=== PATIENT | female | born 1940 | race Caucasian/White ===

== ENCOUNTER 2016-03-25 15:23 | Emergency (ER) | payer MEDICARE, BC ==
[~2016-03-25] VITALS: Ht 165.1 cm; Wt 56.0 kg
[~2016-03-25 15:23] MED LIST: ALBU1AER INH; COUM5TAB PO; COUM7.5T PO; LORA1TAB PO; LOSA100T3 PO; METO25 PO; SYNT100T PO; UMEC1AER
[2016-03-25 15:25] VITALS: BP 102/57; PULSE 124; RESP 20; TEMP 98.3; O2SAT 96
[2016-03-25] MEDS ORDERED: ONDANSETRON HCL 4 MG/2 ML VIAL IV PUSH ONE (16:30)
[2016-03-25] MEDS ORDERED: SODIUM CHLOR 0.9% 1000 ML INJ 1,000 ML IV ONE (16:30)
--- NOTE | 2016-03-25 16:32 | PD ---
HPI Chief Complaint: Abdominal Pain Time Seen by Provider: 16:18 Travel History International Travel<30 days: No Contact w/Intl Traveler<30days: No Traveled to known affect area: No History of Present Illness HPI The patient is a 76-year-old female who presents emergency department for abdominal pain. The patient states she developed abdominal pain on Tuesday is located left lower quadrant suprapubic region, nonradiating, and associated decreased bowel movements. The patient does have a history of chronic constipation, denies any known history of diverticulitis. The patient denies any dysuria, frequency, or urgency. The patient has a history of previous abdominal surgeries including hysterectomy, appendectomy, and cholecystectomy. The patient denies any associated fever, chills, or sweats. She does note decreased oral intake secondary to the abdominal pain. The patient also states she struck the top of her head, on the right side of her head, earlier today on a drawer. The patient is on Coumadin and has a history of previous brain surgery secondary to meningioma removal. The patient denies any visual disturbances or focal deficits, does complain of a mild headache. The patient' s primary physician is Dr. Mayberry. [facility] Past Medical History Hx Anticoagulant Therapy: Yes (warfarin) Asthma: Yes Cancer: Yes (BREAST AND BLADDER) Cardiovascular Problems: Yes (htn,AR) Chemotherapy: Yes (masectomy) Cerebrovascular Accident: Yes Diabetes: No Diminished Hearing: Yes Endocrine: No Gastrointestinal Disorders: No Genitourinary: No Hepatitis: No Hiatal Hernia: No Hypertension: Yes Immune Disorder: No Musculoskeletal: Yes (ARTHRITIS) Neurologic: Yes (dystonia) Psychiatric: No Reproductive: No Respiratory: Yes (asthma, copd) Thyroid Disease: Yes ([place] THYROID) Past Surgical History Abdominal Surgery: Yes AICD: No Appendectomy: Yes Cholecystectomy: Yes Ear Surgery: No Endocrine Surgery: Yes (THROIDECTOMY) Eye Surgery: No Genitourinary Surgery: Yes (BLADDER) Gynecologic Surgery: Yes (HYSTERECTOMY) Hysterectomy: Yes Joint Replacement: Yes Mastectomy: Yes (LEFT) Neurologic Surgery: Yes (BRAIN TUMOR REMOVED) Oral Surgery: No Pacemaker: No Tonsillectomy: Yes Other Surgery: Yes (THYROID REMOVED) Social History Alcohol Use: Yes (SOCIAL) Tobacco Use: No Substance Use: No Allergies-Medications (Allergen,Severity, Reaction): Coded Allergies: Shellfish (Verified Allergy, Severe, Shortness of Breath, 03/25/16) Spiriva (Verified Allergy, Severe, rash, 03/25/16) Codeine (Verified Allergy, Unknown, NAUSEA AND VOMITIMG, 03/25/16) Reported Meds & Prescriptions Reported Meds & Active Scripts Active Reported Synthroid (Levothyroxine Sodium) 125 Mcg Tab 125 Mcg PO DAILY Losartan-Hydrochlorothiazide 50-12.5 Mg Tab 1 Tab PO DAILY Metoprolol Tartrate 25 Mg Tab 12.5 Mg PO BID Lorazepam 1 Mg Tab 1 Mg PO TID PRN Anoro Ellipta Inh (Umeclidinium/Vilanterol) 62.5-25 Mcg/Act Aero 1 Puff INH DAILY Warfarin 5 Mg Tab 5 Mg PO DAILY Review of Systems Except as stated in HPI: all other systems reviewed are Neg General / Constitutional: No: Fever Eyes: No: Blurred Vision HENT: Positive: Headaches, No: Lightheadedness Cardiovascular: No: Chest Pain or Discomfort Respiratory: No: Shortness of Breath Gastrointestinal: Positive: Abdominal Pain, Changes in Bowel Habits, Loss of Appetite, No: Nausea, Vomiting, Diarrhea Genitourinary: No: Urgency, Frequency, Dysuria Musculoskeletal: No: Weakness Neurologic: No: Dizziness Physical Exam Narrative GENERAL: Awake, alert, pleasant 76-year-old female who appears her stated age and is in no acute respiratory distress. SKIN: Warm and dry. HEAD: Well-healed scar of the right frontal parietal region. No obvious hematoma. EYES: Pupils equal and round. No scleral icterus. No injection or drainage. Pupils are 3 mm bilateral and reactive. ENT: No nasal bleeding or discharge. Slightly dry mucous membranes. NECK: Trachea midline. No JVD. CARDIOVASCULAR: Regular, tachycardic with a heart rate of 110. RESPIRATORY: No accessory muscle use. Clear to auscultation. Breath sounds equal bilaterally. GASTROINTESTINAL: Abdomen soft, tender palpation left lower quadrant and suprapubic region. No rebound tenderness, or rigidity. Mild guarding. MUSCULOSKELETAL: No obvious deformities. No clubbing. No cyanosis. No edema. NEUROLOGICAL: Awake and alert. No obvious cranial nerve deficits. Motor grossly within normal limits. Normal speech. PSYCHIATRIC: Appropriate mood and affect; insight and judgment normal. Data Data Last Documented VS Vital Signs Date Time Temp Pulse Resp B/P Pulse Ox O2 Delivery O2 Flow Rate FiO2 03/25/16 17:22 98 20 117/80 97 Room Air 03/25/16 15:25 98.3 Orders Complete Blood Count With Diff (03/25/16 15:35) Comprehensive Metabolic Panel (03/25/16 15:35) Urinalysis - C+S If Indicated (03/25/16 15:35) Lipase (03/25/16 15:35) Electrocardiogram (03/25/16 15:35) Lactic Acid (03/25/16 16:26) Ct Abd/Pel W/O Iv Contrast (03/25/16 ) Ct Brain W/O Iv Contrast(Rout) (03/25/16 ) Sodium Chlor 0.9% 1000 Ml Inj (Ns 1000 M (03/25/16 16:30) Ondansetron Inj (Zofran Inj) (03/25/16 16:30) Act Partial Throm Time (Ptt) (03/25/16 17:02) Prothrombin Time / Inr (Pt) (03/25/16 17:02) Ciprofloxacin 400 Mg Premix (Cipro 400 M (03/25/16 17:15) Metronidazole 500 Mg Inj (Flagyl 500 Mg (03/25/16 17:15) Ketorolac Inj (Toradol Inj) (03/25/16 17:30) Labs Laboratory Tests Test 03/25/16 03/25/16 16:09 17:17 White Blood Count 7.6 TH/MM3 Red Blood Count 3.80 MIL/MM3 Hemoglobin 12.8 GM/DL Hematocrit 37.3 % Mean Corpuscular Volume 98.0 FL Mean Corpuscular Hemoglobin 33.6 PG Mean Corpuscular Hemoglobin 34.3 % Concent Red Cell Distribution Width 14.0 % Platelet Count 241 TH/MM3 Mean Platelet Volume 7.3 FL Neutrophils (%) (Auto) 90.1 % Lymphocytes (%) (Auto) 4.2 % Monocytes (%) (Auto) 4.5 % Eosinophils (%) (Auto) 1.1 % Basophils (%) (Auto) 0.1 % Neutrophils # (Auto) 6.9 TH/MM3 Lymphocytes # (Auto) 0.3 TH/MM3 Monocytes # (Auto) 0.3 TH/MM3 Eosinophils # (Auto) 0.1 TH/MM3 Basophils # (Auto) 0.0 TH/MM3 CBC Comment DIFF FINAL Differential Comment Prothrombin Time 48.3 SEC Prothromb Time International 4.1 RATIO Ratio Activated Partial 61.8 SEC Thromboplast Time Urine Color YELLOW Urine Turbidity CLEAR Urine pH 6.5 Urine Specific [place] 1.013 Urine Protein TRACE mg/dL Urine Glucose (UA) NEG mg/dL Urine Ketones NEG mg/dL Urine Occult Blood NEG Urine Nitrite NEG Urine Bilirubin NEG Urine Urobilinogen 2.0 MG/DL Urine Leukocyte Esterase SMALL Urine RBC 1 /hpf Urine WBC 4 /hpf Urine Squamous Epithelial <1 /hpf Cells Urine Mucus FEW /lpf Microscopic Urinalysis Comment CULT NOT INDICATED Sodium Level 132 MEQ/L Potassium Level 3.2 MEQ/L Chloride Level 96 MEQ/L Carbon Dioxide Level 28.8 MEQ/L Anion Gap 7 MEQ/L Blood Urea Nitrogen 19 MG/DL Creatinine 0.66 MG/DL Estimat Glomerular Filtration 88 ML/MIN Rate Random Glucose 96 MG/DL Calcium Level 8.2 MG/DL Total Bilirubin 0.7 MG/DL Aspartate Amino Transf 10 U/L (AST/SGOT) Alanine Aminotransferase 14 U/L (ALT/SGPT) Alkaline Phosphatase 132 U/L Total Protein 6.6 GM/DL Albumin 2.8 GM/DL Lipase 74 U/L Lactic Acid Level 0.9 mmol/L [facility] Medical Decision Making Medical Screen Exam Complete: Yes Emergency Medical Condition: Yes Medical Record Reviewed: Yes Interpretation(s) Laboratory Tests Test 03/25/16 03/25/16 16:09 17:17 White Blood Count 7.6 TH/MM3 Red Blood Count 3.80 MIL/MM3 Hemoglobin 12.8 GM/DL Hematocrit 37.3 % Mean Corpuscular Volume 98.0 FL Mean Corpuscular Hemoglobin 33.6 PG Mean Corpuscular Hemoglobin 34.3 % Concent Red Cell Distribution Width 14.0 % Platelet Count 241 TH/MM3 Mean Platelet Volume 7.3 FL Neutrophils (%) (Auto) 90.1 % Lymphocytes (%) (Auto) 4.2 % Monocytes (%) (Auto) 4.5 % Eosinophils (%) (Auto) 1.1 % Basophils (%) (Auto) 0.1 % Neutrophils # (Auto) 6.9 TH/MM3 Lymphocytes # (Auto) 0.3 TH/MM3 Monocytes # (Auto) 0.3 TH/MM3 Eosinophils # (Auto) 0.1 TH/MM3 Basophils # (Auto) 0.0 TH/MM3 CBC Comment DIFF FINAL Differential Comment Prothrombin Time 48.3 SEC Prothromb Time International 4.1 RATIO Ratio Activated Partial 61.8 SEC Thromboplast Time Urine Color YELLOW Urine Turbidity CLEAR Urine pH 6.5 Urine Specific [place] 1.013 Urine Protein TRACE mg/dL Urine Glucose (UA) NEG mg/dL Urine Ketones NEG mg/dL Urine Occult Blood NEG Urine Nitrite NEG Urine Bilirubin NEG Urine Urobilinogen 2.0 MG/DL Urine Leukocyte Esterase SMALL Urine RBC 1 /hpf Urine WBC 4 /hpf Urine Squamous Epithelial <1 /hpf Cells Urine Mucus FEW /lpf Microscopic Urinalysis Comment CULT NOT INDICATED Sodium Level 132 MEQ/L Potassium Level 3.2 MEQ/L Chloride Level 96 MEQ/L Carbon Dioxide Level 28.8 MEQ/L Anion Gap 7 MEQ/L Blood Urea Nitrogen 19 MG/DL Creatinine 0.66 MG/DL Estimat Glomerular Filtration 88 ML/MIN Rate Random Glucose 96 MG/DL Calcium Level 8.2 MG/DL Total Bilirubin 0.7 MG/DL Aspartate Amino Transf 10 U/L (AST/SGOT) Alanine Aminotransferase 14 U/L (ALT/SGPT) Alkaline Phosphatase 132 U/L Total Protein 6.6 GM/DL Albumin 2.8 GM/DL Lipase 74 U/L Lactic Acid Level 0.9 mmol/L Differential Diagnosis Differential diagnosis includes diverticulitis, diverticulitis with abscess, UTI , pyelonephritis, nephrolithiasis, intracranial hemorrhage, closed head injury, coagulopathy, dehydration. Narrative Course IV was established, labs are drawn and sent, and the patient was placed on cardiac telemetry monitoring and continuous pulse oximetry monitoring. The patient declined pain medications, states she is allergic to "everything "related to codeine and declines morphine. However, she cannot recall ever having morphine. CT the abdomen and pelvis was ordered to evaluate for diverticulitis and CT the brain was ordered to rule out intracranial hemorrhage on anticoagulation therapy. Patient was administered Zofran and IV fluids. I discussed the CT of the abdomen and pelvis with Dr. Cavazos who states it is uncomplicated diverticulitis. CT the brain is negative for any acute findings. Therefore, the patient was administered Toradol, Cipro, and Flagyl. The patient is on Coumadin and INR is elevated at 4.1, therefore, I will discharge the patient home and Augmentin as opposed to Cipro and Flagyl as Cipro may potentiate Coumadin. Diagnosis Primary Impression: Diverticulitis Qualified Code: K57.32 - Diverticulitis of large intestine without perforation or abscess without bleeding Patient Instructions: General Instructions Additional Instructions: Please provide the patient a copy of her CT results and lab results at discharge. Medications as directed. Follow-up with a primary physician. Return if symptoms worsen or progress. Med/Other Pt SpecificInfo: Prescription(s) given Scripts Hydrocodone-Acetaminophen (Raymond)5-325 mg Tab1 Tab PO Q6H PRN (PAIN) #20 TAB Ref 0 Prov:Presley Brennan MD 03/25/16 Amoxicillin-Clavulanate (Augmentin)500-125 mg [id number] Mg PO Q8H 10 Days Ref 0 Prov:Presley Brennan MD 03/25/16 Disposition: 01 DISCHARGE HOME Condition: Stable Presley Brennan MD Mar 25, 2016 16:32
[2016-03-25 16:37] LABS: AUTOMATED NEUTROPHIL # 6.9 TH/MM3 (1.8-7.7); BASOPHIL % 0.1 % (0.0-2.0); EOSINOPHIL # 0.1 TH/MM3 (0-0.4); EOSINOPHIL % 1.1 % (0.0-4.0); HEMATOCRIT 37.3 % (35.0-46.0); HEMO FLAGS DIFF FINAL; LYMPH % 4.2 % (9.0-44.0); LYMPHOCYTE # 0.3 TH/MM3 (1.0-4.8); MEAN CORPUSCULAR HEMOGLOBIN 33.6 PG (27.0-34.0); MEAN CORPUSCULAR HGB CONC 34.3 % (32.0-36.0); MONO % 4.5 % (0.0-8.0); NEUT % 90.1 % (16.0-70.0); PLATELET COUNT 241 TH/MM3 (150-450); WHITE BLOOD COUNT 7.6 TH/MM3 (4.0-11.0)
[2016-03-25 16:41] LABS: BLOOD, URINE NEG (NEG); COMMENT (UR) CULT NOT INDICATED; CULTURE IF INDICATED CULT NOT INDICATED; GLUCOSE,URINE NEG (NEG); KETONE, URINE NEG (NEG); MUCUS URINE FEW /lpf (OCC); NITRITE,URINE NEG (NEG); PH, URINE 6.5 (5.0-8.5); SQUAMOUS EPITHELIAL CELL URINE <1 /hpf (0-5); URINE COLOR YELLOW (YELLW/STRAW)
[2016-03-25 16:59] LABS: ANION GAP 7 MEQ/L (5-15); AST (GOT) 10 U/L (15-37); BICARBONATE 28.8 MEQ/L (21.0-32.0); BLOOD UREA NITROGEN 19 MG/DL (7-18); CHLORIDE 96 MEQ/L (98-107); GLOMERULAR FILTRATION RATE 88 ML/MIN (>89); POTASSIUM 3.2 MEQ/L (3.5-5.1); SODIUM (NA) 132 MEQ/L (136-145)
[2016-03-25 17:02] LABS: ALKALINE PHOSPHATASE 132 U/L (45-117); ALT (GPT) 14 U/L (10-53); TOTAL BILIRUBIN ADULT 0.7 MG/DL (0.2-1.0)
--- NOTE | 2016-03-25 17:11 | RADRPT ---
EXAM DATE/TIME: 03/25/2016 16:51 [facility] COMPARISON: MRI BRAIN W & W/O CONTRAST, January 23, 2015, 15:18. CT BRAIN W/O CONTRAST, July 23, 2015, 0:18. INDICATIONS : Fall and hit head on dresser today; LLQ abdominal pain for three days. RADIATION DOSE: 42.45 CTDIvol (mGy) MEDICAL HISTORY : Cerebrovascular disease. Hypertension. Breast, bladder, and thyroid cancer. SURGICAL HISTORY : Appendectomy. Cholecystectomy. Mastectomy, left. ENCOUNTER: Initial ACUITY: 1 day PAIN SCALE: 5/10 LOCATION: Cranial TECHNIQUE: Multiple contiguous axial images were obtained of the head. Using automated exposure control and adj ustment of the mA and/or kV according to patient size, radiation dose was kept as low as reasonably a chievable to obtain optimal diagnostic quality images. FINDINGS: Encephalomalacia is again noted within the frontal lobes bilaterally. Old lacunar infarcts are noted within the left thalamus. Moderate periventricular and subcortical white matter small vessel ischem ic changes are noted bilaterally. Diffuse cerebral atrophy is noted. There is no acute hemorrhage, a cute infarct, mass effect or extra-axial fluid collections. CONCLUSION: 1. Bifrontal encephalomalacia is stable. 2. Old lacunar infarct within the left thalamus. 3. Moderate periventricular and subcortical white matter small vessel ischemic changes bilaterally. 4. Diffuse cerebral atrophy. 5. No acute infarct, acute hemorrhage, mass effect or extra-axial fluid collections. Gianfranco Botello MD on March 25, 2016 at 17:03 Board Certified Radiologist. This report was verified electronically.
[2016-03-25] MEDS ORDERED: metroNIDAZOLE 500 MG INJ 100 ML IV ONE (17:15)
[2016-03-25] MEDS ORDERED: CIPROFLOXACIN 400 MG PREMIX 200 ML IV ONE (17:15)
[2016-03-25 17:22] VITALS: BP 117/80; PULSE 98; RESP 20; O2SAT 97
--- NOTE | 2016-03-25 17:29 | RADRPT ---
EXAM DATE/TIME: 03/25/2016 16:54 [facility] COMPARISON: No previous studies available for comparison. INDICATIONS : Fall and hit head on dresser today; LLQ abdominal pain for three days. ORAL CONTRAST: No oral contrast ingested. RADIATION DOSE: 8.63 CTDIvol (mGy) MEDICAL HISTORY : Cerebrovascular disease. Hypertension. Breast, bladder, and thyroid cancer. SURGICAL HISTORY : Appendectomy. Cholecystectomy. Mastectomy, left. ENCOUNTER: Initial ACUITY: 3 days PAIN SCALE: 5/10 LOCATION: Left lower quadrant Abdomen/pelvis TECHNIQUE: Volumetric scanning of the abdomen and pelvis was performed. Using automated exposure control and adjustment of the mA and/or kV according to patient size, radiation dose was kept as low as reasonably achievable to obtain optimal diagnostic quality images. FINDINGS: Lung bases are clear. The liver is free of focal defects. Spleen, pancreas, adrenals and kidneys are unremarkable. There are moderate inflammatory changes in the left lower quadrant associated with diverticuli. This is suspicious for diverticulitis without abscess. Pelvic contents are otherwise unremarkable. Review of bone windows reveals only degenerative changes. Fracture is not appreciated. CONCLUSION: Findings are suspicious for uncomplicated diverticulitis in the left lower quadrant. Kemal Cavazos MD FACR on March 25, 2016 at 17:12 Board Certified Radiologist. This report was verified electronically.
[2016-03-25] MEDS ORDERED: KETOROLAC TROMETHAMINE 30 MG/ML (IVP) VIAL IV PUSH ONE (17:30)
[2016-03-25 17:32] LABS: APTT (PATIENT) 61.8 SEC (24.3-30.1); INTERNATIONAL NORMALIZED RATIO 4.1 RATIO; PROTHROMBIN TIME - PATIENT 48.3 SEC (9.8-11.6)
[2016-03-25] MEDS ORDERED: LORA1TAB12 PO (18:19)
[2016-03-25] MEDS ORDERED: WARF-23 PO (18:19)
[2016-03-25] MEDS ORDERED: LEVO.125 PO (18:19)
[2016-03-25] MEDS ORDERED: LOSA50TA2 PO (18:19)
[2016-03-25] MEDS ORDERED: UMEC1AER INH (18:19)
[2016-03-25] MEDS ORDERED: METO25TA3 PO (18:19)
[2016-03-25] MEDS ORDERED: AUGM500T7 PO (18:32)
[2016-03-25] MEDS ORDERED: NORC5TAB PO (18:32)
[2016-03-25 19:16] VITALS: BP 110/72; PULSE 98; RESP 18; O2SAT 95
--- NOTE | 2016-03-26 22:54 | EKG ---
Date Performed: 03/25/2016 Time Performed: 15:45:25 PTAGE: 76 years EKG: SUPRAVENTRICULAR TACHYCARDIA THAT IS PROBABLY ATRIAL FIBRILLATION BUT I CANNOT EXCLUDE SINU S TACHYCARDIA WITH PACs BECAUSE OF THE MARKED BASELINE ARTIFACT. THE PATIENT, HOWEVER, WAS PREVIOUSL Y IN ATRIAL FIBRILLATION SO IT MAKES IT MORE LIKELY THAT THE PRESENT RHYTHM IS ATRIAL FIBRILLATION WELL. INDETERMINATE AXIS LOW QRS VOLTAGE IN EXTREMITY LEADS Compared to previous tracing, the nonspe cific ST-T wave changes have improved. ABNORMAL RHYTHM ECG PREVIOUS TRACING : 01/22/2015 18.15 DOCTOR: Octavia De Interpretating Date/Time 03/26/2016 22:53:20
== END 2016-03-25 20:24 | disposition home or self-care (01) ==
LOC: NEPA 15:23
DX: K57.32 Diverticulitis of large intestine without perforation or abscess without bleeding (principal); J45.909 Unspecified asthma, uncomplicated; J44.9 Chronic obstructive pulmonary disease, unspecified; Z79.01 Long term (current) use of anticoagulants; Z90.710 Acquired absence of both cervix and uterus; I25.2 Old myocardial infarction; I10 Essential (primary) hypertension
CPT/HCPCS: 70450; 74176; 80053; 81001; 83605; 83690; 85025; 85610; 85730; 93005; 96365; 96375; 99284; J0744; J1885; J2405; J7030

== ENCOUNTER 2016-10-27 12:10 | Observation (INO) | payer MEDICARE, BC ==
[2016-10-27] VITALS (12 sets, daily range): BP systolic 81–159; BP diastolic 51–92; PULSE 91–103; RESP 18–22; TEMP 98.2–98.5; O2SAT 93–100
[~2016-10-27] VITALS: Ht 162.6 cm; Wt 55.0 kg
[~2016-10-27 12:10] MED LIST changes: -ALBU1AER INH; +AUGM500T7 PO; -COUM5TAB PO; -COUM7.5T PO; +LEVO.125 PO; -LORA1TAB PO; +LORA1TAB12 PO; -LOSA100T3 PO; +LOSA50TA2 PO; -METO25 PO; +METO25TA3 PO; +NORC5TAB PO; -SYNT100T PO; -UMEC1AER; +UMEC1AER INH; +WARF-23 PO
--- NOTE | 2016-10-27 12:21 | PD ---
HPI . syncope/AMS Chief Complaint: Altered Mental Status Time Seen by Provider: 12:21 Travel History International Travel<30 days: No Contact w/Intl Traveler<30days: No Traveled to known affect area: No History of Present Illness HPI 76- year old female with a PMHx of a fib, CVA, COPD, HTN, Hypothyroidism, and GERD presents to the ED complaining of altered mental status since around 7:30 this morning. Patient does not recall any of the event. Per patient's , he got home and found the patient on the toilet slumped over. The patient possibly hit the right side of her head on a safety railing on the wall next to the toilet, but denies any loss of consciousness. The insisted on bringing her to the ED, but she wanted to shower and get dressed before coming in, which caused a delay getting here. The patient has some right sided weakness but she reports that is her baseline and had that for the past 12 years. The patient denies any chest pain, shortness of breath, or any pain. She reports she takes blood thinners including Xarelto. She initially denied any hx of a fib, however, prior records indicate A fib. Her PCP is Dr. Charles. Her food server is Dr. Allan. [facility] Past Medical History Hx Anticoagulant Therapy: Yes (XARELTO) Arthritis: Yes Asthma: Yes Cancer: Yes (BREAST AND BLADDER,THYROID ) Cardiovascular Problems: Yes (htn,VT) Chemotherapy: Yes (MASTECTOMY) COPD: Yes Cerebrovascular Accident: Yes Diabetes: No Diminished Hearing: Yes Endocrine: No Gastrointestinal Disorders: No Genitourinary: No Hepatitis: No Hiatal Hernia: No Hypertension: Yes Immune Disorder: No Musculoskeletal: Yes Neurologic: Yes (dystonia) Psychiatric: No Reproductive: No Respiratory: Yes Immunizations Current: No Myocardial Infarction: Yes Thyroid Disease: Yes (CA THYROID) Menopausal: Yes Past Surgical History Abdominal Surgery: Yes AICD: No Appendectomy: Yes Cholecystectomy: Yes Ear Surgery: No Endocrine Surgery: Yes (THROIDECTOMY) Eye Surgery: No Genitourinary Surgery: Yes (BLADDER) Gynecologic Surgery: Yes (HYSTERECTOMY) Hysterectomy: Yes Joint Replacement: Yes Mastectomy: Yes (LEFT) Neurologic Surgery: Yes (BRAIN TUMOR REMOVED) Oral Surgery: No Pacemaker: No Tonsillectomy: Yes Other Surgery: Yes (THYROID REMOVED) Social History Alcohol Use: Yes (SOCIAL) Tobacco Use: No Substance Use: No Allergies-Medications (Allergen,Severity, Reaction): Coded Allergies: shellfish derived (Unverified Allergy, Severe, Shortness of Breath, ) tiotropium (Unverified Allergy, Severe, rash, 10/27/16) codeine (Unverified Allergy, Unknown, NAUSEA AND VOMITIMG, 10/27/16) Reported Meds & Prescriptions Reported Meds & Active Scripts Active Reported Omeprazole 40 Mg Cap 40 Mg PO DAILY Xarelto (Rivaroxaban) 20 Mg Tab 20 Mg PO DAILY Metoprolol Tartrate 25 Mg Tab 25 Mg PO BID Synthroid (Levothyroxine Sodium) 125 Mcg Tab 125 Mcg PO DAILY Lorazepam 1 Mg Tab 1 Mg PO TID PRN Anoro Ellipta Inh (Umeclidinium/Vilanterol) 62.5-25 Mcg/Act Aero 1 Puff INH DAILY Review of Systems General / Constitutional: No: Fever, Chills, Weight Gain, Weight Loss, Other Eyes: No: Diploplia, Blurred Vision, Photophobia, Drainage, Redness, Foreign Body Sensation, Pain, Tearing, Blind Spots, Visual changes, Blindness, Other HENT: No: Headaches, Vertigo, Lightheadedness, Sore Throat, Rhinitis, Rhinorrhea, Congestion, Nosebleed, Neck Stiffness, Neck Pain, Masses, Gingival Bleeding, Dental Difficulties, Ear Discharge, Earache, Other Cardiovascular: No: Chest Pain or Discomfort, Palpitations, Irregular Rhythm, Tachycardia, Diaphoresis, Syncope, Dyspnea on exertion, Varicosities, Edema, Cyanosis, Varicosities, Phlebitis, Claudication, Other Respiratory: No: Cough, Shortness of Breath, Wheezing, Sneezing, Orthopnea, Hemoptysis, Stridor, Night Sweats, Pleuritic Pain, Other Gastrointestinal: No: Nausea, Vomiting, Diarrhea, Abdominal Pain, Hematemesis, Hematochezia, Constipation, Changes in Bowel Habits, Indigestion, Dysphagia, Loss of Appetite, Other Genitourinary: No: Urgency, Frequency, Dysuria, Nocturia, Hematuria, Decreased Urinary Output, Oliguria, Hesitancy, Dribbling, Incontinence, Pelvic Pain, Flank Pain, Dyspareunia, Discharge, Dysmenorrhea, Menorrhagia, Metorrhagia, Vaginal Bleeding, Other Musculoskeletal: No: Myalgias, Arthralgias, Limited ROM, Weakness, Cramping, Edema, Pain, Atrophy, Other Skin: No Rash, No Itching, No Dryness, No Lumps, No Hives, No Change in Pigmentation, No Change in nails, No Alopecia, No Lesions, No Breast Lumps, No Breast Tenderness, No Breast Swelling, No Other Neurologic: Positive: Change in Mentation, No: Weakness, Dizziness, Syncope, Focal Abnormalities, Coordination Problem, Tremor, Ataxia, Headache, Slurred Speech, Paresthesia, Incontinence, Seizures, Sensory Disturbance, Other Psychiatric: No: Anxiety, Depression, Suicidal Ideations, Disorder of Thought, Mood Disorder, Substance Abuse, Homicidal Ideation, Other Endocrine: No: Heat Intolerance, Cold Intolerance, Polyuria, Polydipsia, Other Hematologic/Lymphatic: No: Easy Bruising, Lymph Node Enlargement, Other Physical Exam Narrative GENERAL: SKIN: Warm and dry. HEAD: Atraumatic. Normocephalic. EYES: Pupils equal and round. No scleral icterus. No injection or drainage. ENT: No nasal bleeding or discharge. Mucous membranes pink and moist. NECK: Trachea midline. No JVD. CARDIOVASCULAR: irregularly irregular heartbeat,3/6 murmur RESPIRATORY: No accessory muscle use. Clear to auscultation. Breath sounds equal bilaterally. GASTROINTESTINAL: Abdomen soft, non-tender, nondistended. Hepatic and splenic margins not palpable. MUSCULOSKELETAL: Right sided drift, which is baseline for patient. Extremities without clubbing, cyanosis, or edema. No obvious deformities. NEUROLOGICAL: Awake and alert. No obvious cranial nerve deficits. Motor grossly within normal limits. Five out of 5 muscle strength in the arms and legs. Normal speech. PSYCHIATRIC: Appropriate mood and affect; insight and judgment normal. Data Data Last Documented VS Vital Signs Date Time Temp Pulse Resp B/P Pulse Ox O2 Delivery O2 Flow Rate FiO2 10/27/16 14:30 94 22 104/59 98 Room Air 10/27/16 12:13 98.5 Orders Electrocardiogram (10/27/16 12:35) Basic Metabolic Panel (Bmp) (10/27/16 12:35) Complete Blood Count With Diff (10/27/16 12:35) Comprehensive Metabolic Panel (10/27/16 12:35) Creatine Kinase (Cpk) (10/27/16 12:35) Prothrombin Time / Inr (Pt) (10/27/16 12:35) Act Partial Throm Time (Ptt) (10/27/16 12:35) Troponin I (10/27/16 12:35) Thyroid Stimulating Hormone (10/27/16 12:35) Urinalysis - C+S If Indicated (10/27/16 12:35) Lactic Acid Sepsis Protocol (10/27/16 12:35) Blood Culture (10/27/16 12:35) Chest, Single Ap (10/27/16 12:35) Ct Brain W/O Iv Contrast(Rout) (10/27/16 12:35) Blood Glucose (10/27/16 12:35) Ecg Monitoring (10/27/16 12:35) Iv Access Insert/Monitor (10/27/16 12:35) Oximetry (10/27/16 12:35) Sodium Chloride 0.9% Flush (Ns Flush) (10/27/16 12:45) Sodium Chlor 0.9% 1000 Ml Inj (Ns 1000 M (10/27/16 12:45) CKMB (10/27/16 13:05) CKMB% (10/27/16 13:05) Urine Culture (10/27/16 13:50) Sodium Chlor 0.9% 1000 Ml Inj (Ns 1000 M (10/27/16 14:30) Ceftriaxone Inj (Rocephin Inj) (10/27/16 14:45) Admit Order (Ed Use Only) (10/27/16 14:59) Labs Laboratory Tests Test 10/27/16 10/27/16 13:05 13:50 White Blood Count 12.7 TH/MM3 Red Blood Count 4.12 MIL/MM3 Hemoglobin 11.8 GM/DL Hematocrit 37.6 % Mean Corpuscular Volume 91.1 FL Mean Corpuscular Hemoglobin 28.7 PG Mean Corpuscular Hemoglobin 31.5 % Concent Red Cell Distribution Width 17.3 % Platelet Count 307 TH/MM3 Mean Platelet Volume 8.1 FL Neutrophils (%) (Auto) 92.7 % Lymphocytes (%) (Auto) 2.6 % Monocytes (%) (Auto) 4.6 % Eosinophils (%) (Auto) 0.0 % Basophils (%) (Auto) 0.1 % Neutrophils # (Auto) 11.8 TH/MM3 Lymphocytes # (Auto) 0.3 TH/MM3 Monocytes # (Auto) 0.6 TH/MM3 Eosinophils # (Auto) 0.0 TH/MM3 Basophils # (Auto) 0.0 TH/MM3 CBC Comment DIFF FINAL Differential Comment Prothrombin Time 14.4 SEC Prothromb Time International 1.3 RATIO Ratio Activated Partial 34.1 SEC Thromboplast Time Sodium Level 140 MEQ/L Potassium Level 3.5 MEQ/L Chloride Level 103 MEQ/L Carbon Dioxide Level 26.2 MEQ/L Anion Gap 11 MEQ/L Blood Urea Nitrogen 19 MG/DL Creatinine 1.20 MG/DL Estimat Glomerular Filtration 44 ML/MIN Rate Random Glucose 165 MG/DL Lactic Acid Level 2.7 mmol/L Calcium Level 8.7 MG/DL Total Bilirubin 0.7 MG/DL Aspartate Amino Transf 26 U/L (AST/SGOT) Alanine Aminotransferase 16 U/L (ALT/SGPT) Alkaline Phosphatase 119 U/L Total Creatine Kinase 706 U/L Creatine Kinase MB 4.0 NG/ML Creatine Kinase MB % 0.6 % Troponin I 0.05 NG/ML Total Protein 7.1 GM/DL Albumin 3.2 GM/DL Thyroid Stimulating Hormone 0.045 uIU/ML 3rd Gen Urine Color YELLOW Urine Turbidity CLOUDY Urine pH 6.0 Urine Specific [place] 1.019 Urine Protein 100 mg/dL Urine Glucose (UA) NEG mg/dL Urine Ketones NEG mg/dL Urine Occult Blood MOD Urine Nitrite NEG Urine Bilirubin NEG Urine Urobilinogen 2.0 MG/DL Urine Leukocyte Esterase LARGE Urine RBC 83 /hpf Urine WBC /hpf Urine WBC Clumps FEW Urine Squamous Epithelial 2 /hpf Cells Urine Bacteria MOD /hpf Urine Hyaline Casts 53 /lpf Urine Mucus FEW /lpf Microscopic Urinalysis Comment CULTURE INDICATED MDM Medical Decision Making Medical Screen Exam Complete: Yes Emergency Medical Condition: Yes Medical Record Reviewed: Yes Differential Diagnosis AMS, syncope, A fib with RVR, TIA, CVA, Sepsis, Pneumonia, UTI, Thyroid disturbance Narrative Course 76-year-old female here with a syncopal episode and altered mental status. On examination she does have some irregular heartbeat. Neuro exam is fairly unremarkable except for her baseline dropped wrist on right side. IV access obtained. Patient placed on continuous cardiac monitoring as well as pulse oximetry. Labs, chest x-ray, EKG and CT of the brain have been ordered. EKG was reviewed by Dr. Dipak Mock demonstrates A. fib. Patient is hypotensive and IV fluids have been started here in the ED. Last Impressions Head CT 10/27/165 Signed Impressions: Service Date/Time: Thursday, October 27, 2016 12:55 - CONCLUSION: 1. No acute hemorrhage or mass effect. 2. Atrophy and stable encephalomalacia in both frontal lobes. 3. Remote postsurgical changes status post craniotomy. Isauro Chester MD Chest X-Ray 10/27/165 Signed Impressions: Service Date/Time: Thursday, October 27, 2016 13:25 - CONCLUSION: 1. COPD changes and calcified granuloma stable compared to previous. 2. Advanced degenerative changes in the shoulders with osteochondral bodies on the right. Bon Cavazos MD Laboratory Tests Test 10/27/16 10/27/16 13:05 13:50 White Blood Count 12.7 TH/MM3 Mean Corpuscular Hemoglobin 31.5 % Concent Red Cell Distribution Width 17.3 % Neutrophils (%) (Auto) 92.7 % Lymphocytes (%) (Auto) 2.6 % Neutrophils # (Auto) 11.8 TH/MM3 Lymphocytes # (Auto) 0.3 TH/MM3 Prothrombin Time 14.4 SEC Activated Partial 34.1 SEC Thromboplast Time Blood Urea Nitrogen 19 MG/DL Creatinine 1.20 MG/DL Estimat Glomerular Filtration 44 ML/MIN Rate Random Glucose 165 MG/DL Lactic Acid Level 2.7 mmol/L Alkaline Phosphatase 119 U/L Total Creatine Kinase 706 U/L Creatine Kinase MB 4.0 NG/ML Albumin 3.2 GM/DL Thyroid Stimulating Hormone 0.045 uIU/ML 3rd Gen Urine Turbidity CLOUDY Urine Protein 100 mg/dL Urine Occult Blood MOD Urine Leukocyte Esterase LARGE Urine RBC 83 /hpf Urine WBC Clumps FEW Urine Bacteria MOD /hpf Urine Mucus FEW /lpf 1443: Labs reviewed: patient appears to have a UTI and meets sepsis criteria. She also has some low TSH. I have discussed the case with my attending Dr. Mock. We will administer 1g rocephin here in ED. Call back requested for admission from [facility] 1500: Discussed with Dr. Ferrer. Patient admitted. He will resume care of this patient. I have discussed the findings with the patient and her at bedside. She is in agreement with the recommendations. Diagnosis Primary Impression: Sepsis Qualified Code: A41.9 - Sepsis, due to unspecified organism Additional Impression: UTI (urinary tract infection) Qualified Code: N30.01 - Acute cystitis with hematuria Admitting Information Admitting Physician Requests: Admit Condition: Stable Gill Vu Oct 27, 2016 12:21
[2016-10-27] MEDS ORDERED: OMEP40CA2 PO (12:38)
[2016-10-27] MEDS ORDERED: XARE20TA PO (12:38)
[2016-10-27] MEDS ORDERED: METO25TA3 PO (12:38)
[2016-10-27] MEDS ORDERED: SODIUM CHLORIDE 0.9% FLUSH 5 ML FLUSH IV FLUSH PRN (12:45)
[2016-10-27] MEDS ORDERED: SODIUM CHLOR 0.9% 1000 ML INJ 1,000 ML IV ONE ×2 (12:45→14:30)
--- NOTE | 2016-10-27 13:10 | RADRPT ---
EXAM DATE/TIME: 10/27/2016 12:55 [facility] COMPARISON: CT BRAIN W/O CONTRAST, March 25, 2016, 16:51. INDICATIONS : Altered mental status, disorientated RADIATION DOSE: 33.40 CTDIvol (mGy) MEDICAL HISTORY : Cerebrovascular disease. Hypertension. Carcinoma, breast. Brain tumor removed, bladder cancer, thyroi d cancer SURGICAL HISTORY : Appendectomy. Cholecystectomy. Hysterectomy. ENCOUNTER: Initial ACUITY: 1 day PAIN SCALE: 0/10 LOCATION: cranial TECHNIQUE: Multiple contiguous axial images were obtained of the head. Using automated exposure control and adj ustment of the mA and/or kV according to patient size, radiation dose was kept as low as reasonably a chievable to obtain optimal diagnostic quality images. DICOM format image data is available electro nically for review and comparison. FINDINGS: CEREBRUM: Moderate atrophic changes are again noted with bifrontal encephalomalacia change. No evidence of midl ine shift, mass lesion, hemorrhage or acute infarction. No extra-axial fluid collections are seen. POSTERIOR FOSSA: The cerebellum and brainstem are intact. The 4th ventricle is midline. The cerebellopontine angle i s unremarkable. EXTRACRANIAL: The visualized portion of the orbits is intact. SKULL: The calvaria is intact. No evidence of skull fracture. That is post remote right frontal craniotomy. CONCLUSION: 1. No acute hemorrhage or mass effect. 2. Atrophy and stable encephalomalacia in both frontal lobes. 3. Remote postsurgical changes status post craniotomy. Isauro Chester MD on October 27, 2016 at 13:06 Board Certified Radiologist. This report was verified electronically.
[2016-10-27 13:42] LABS: AUTOMATED NEUTROPHIL # 11.8 TH/MM3 (1.8-7.7); BASOPHIL % 0.1 % (0.0-2.0); HEMATOCRIT 37.6 % (35.0-46.0); HEMO FLAGS DIFF FINAL; LYMPH % 2.6 % (9.0-44.0); LYMPHOCYTE # 0.3 TH/MM3 (1.0-4.8); MEAN CELL VOLUME 91.1 FL (80.0-100.0); MEAN CORPUSCULAR HEMOGLOBIN 28.7 PG (27.0-34.0); MEAN CORPUSCULAR HGB CONC 31.5 % (32.0-36.0); MONO % 4.6 % (0.0-8.0); NEUT % 92.7 % (16.0-70.0); PLATELET COUNT 307 TH/MM3 (150-450); RED BLOOD COUNT 4.12 MIL/MM3 (4.00-5.30); RED CELL DISTRIBUTION WIDTH 17.3 % (11.6-17.2); WHITE BLOOD COUNT 12.7 TH/MM3 (4.0-11.0)
[2016-10-27 13:51] LABS: APTT (PATIENT) 34.1 SEC (24.3-30.1); INTERNATIONAL NORMALIZED RATIO 1.3 RATIO; PROTHROMBIN TIME - PATIENT 14.4 SEC (9.8-11.6)
--- NOTE | 2016-10-27 14:05 | RADRPT ---
EXAM DATE/TIME: 10/27/2016 13:25 [facility] COMPARISON: CHEST SINGLE AP, January 22, 2015, 19:07. INDICATIONS : Short of breath, dizziness, confusion. MEDICAL HISTORY : SURGICAL HISTORY : None. ENCOUNTER: Initial ACUITY: 1 day PAIN SCORE: 0/10 LOCATION: Bilateral chest FINDINGS: The heart is at the upper limits of normal in size. The exam demonstrates moderate COPD. There puncta te calcified granuloma within the lung apices on the right. No suspicious nodules are seen. No signif icant pleural effusion is present.Note is made of degenerative changes within the shoulders bilateral ly. CONCLUSION: 1. COPD changes and calcified granuloma stable compared to previous. 2. Advanced degenerative changes in the shoulders with osteochondral bodies on the right. Bon Cavazos MD on October 27, 2016 at 14:02 Board Certified Radiologist. This report was verified electronically.
[2016-10-27 14:15] LABS: ALT (GPT) 16 U/L (10-53); ANION GAP 11 MEQ/L (5-15); AST (GOT) 26 U/L (15-37); BICARBONATE 26.2 MEQ/L (21.0-32.0); BLOOD UREA NITROGEN 19 MG/DL (7-18); CHLORIDE 103 MEQ/L (98-107); GLOMERULAR FILTRATION RATE 44 ML/MIN (>89); POTASSIUM 3.5 MEQ/L (3.5-5.1); SODIUM (NA) 140 MEQ/L (136-145)
[2016-10-27 14:25] LABS: BACTERIA, URINE MOD /hpf; BLOOD, URINE MOD (NEG); COMMENT (UR) CULTURE INDICATED; CULTURE IF INDICATED CULTURE INDICATED; GLUCOSE,URINE NEG (NEG); HYALINE CAST, URINE 53 /lpf (RARE); KETONE, URINE NEG (NEG); MUCUS URINE FEW /lpf (OCC); NITRITE,URINE NEG (NEG); SQUAMOUS EPITHELIAL CELL URINE 2 /hpf (0-5); URINE COLOR YELLOW (YELLW/STRAW)
[2016-10-27 14:25] LABS: ALKALINE PHOSPHATASE 119 U/L (45-117); CREATINE KINASE 706 U/L (26-192); TOTAL BILIRUBIN ADULT 0.7 MG/DL (0.2-1.0)
[2016-10-27] MEDS ORDERED: cefTRIAXone INJ 1,000 MG in SODIUM CHLORIDE 0.9% INJ 100 ML IV ONE (14:45)
[2016-10-27] MEDS ORDERED: LORazepam 1 MG TAB PO PRN (15:15)
[2016-10-27] MEDS ORDERED: MAGNESIUM HYDROXIDE SUSP 30 ML CUP PO PRN (15:15)
[2016-10-27] MEDS: PANTOPRAZOLE SOD 40 MG DELAYED RELEASE TAB PO SCH (15:15)
[2016-10-27] MEDS: LEVOTHYROXINE SODIUM 125 MCG TAB PO SCH (15:15)
[2016-10-27] MEDS ORDERED: ONDANSETRON HCL 4 MG/2 ML VIAL IVP PRN (15:15)
[2016-10-27] MEDS ORDERED: BISACODYL 10 MG SUPP RECTAL PRN (15:15)
[2016-10-27] MEDS ORDERED: MORPHINE SULFATE 4 MG/ML INJ IV PRN ×2 (15:15)
[2016-10-27] MEDS ORDERED: ACETAMINOPHEN 325 MG TAB PO PRN (15:15)
[2016-10-27] MEDS: RIVAROXABAN 20 MG TAB PO SCH (15:15)
[2016-10-27] MEDS ORDERED: SODIUM CHLORIDE 0.9% FLUSH 10 ML FLUSH IV FLUSH PRN ×2 (15:15)
[2016-10-27] MEDS ORDERED: ACETAMINOPHEN/HYDROcodone 325 MG/5 MG TAB PO PRN (15:15)
[2016-10-27] MEDS ORDERED: LACTULOSE SYRUP 20 GM/30 ML CUP PO PRN (15:15)
[2016-10-27] MEDS ORDERED: ACETAMINOPHEN/HYDROcodone 325 MG/10 MG TAB PO PRN (15:15)
[2016-10-27] MEDS ORDERED: NALOXONE HCL 0.4 MG/ML AMP IV PRN (15:15)
[2016-10-27] MEDS ORDERED: PROCHLORPERAZINE 25 MG SUPP RECTAL PRN (15:15)
[2016-10-27] MEDS: UMECLIDINIUM 62.5 MCG/VILANTEROL 25 MCG INHALER INH SCH (15:15)
[2016-10-27] MEDS ORDERED: SENNOSIDES 8.6 MG TAB PO PRN (15:15)
[2016-10-27 15:25] LABS: LACTIC ACID GHOST NOT REPORTABLE
--- NOTE | 2016-10-27 15:30 | HHI.HP ---
[facility] Casandra Mayberry MD Admission Diagnosis sepsis/UTI Diagnoses: (1) Sepsis Diagnosis: Principal (2) UTI (urinary tract infection) Diagnosis: Principal (3) Atrial fibrillation Diagnosis: Secondary (4) Pyelonephritis Diagnosis: Principal Chief Complaint: Altered mental status Travel History International Travel<30 Days: No Contact w/Intl Traveler <30 Da: No Traveled to Known Affected Are: No Sepsis Criteria Sepsis Criteria (SIRS+source): Infect source susp/known Severe Sepsis (+one): Hypotension Criteria Outcome: Meets SIRS criteria History of Present Illness 76- year old female with a PMHx of a fib, CVA, COPD, HTN, Hypothyroidism, and GERD presents to the ED complaining of altered mental status since around 7:30 this morning. Patient does not recall any of the event. Per patient's , he got home and found the patient on the toilet slumped over. The patient possibly hit the right side of her head on a safety railing on the wall next to the toilet, but denies any loss of consciousness. The insisted on bringing her to the ED, but she wanted to shower and get dressed before coming in, which caused a delay getting here. The patient has some right sided weakness but she reports that is her baseline and had that for the past 12 years. The patient denies any chest pain, shortness of breath, or any pain. She reports she takes blood thinners including Xarelto. She initially denied any hx of a fib, however, prior records indicate A fib. Was found to have a urinary tract infection will be placed on Rocephin and will be given fluids will be monitored tonight Review of Systems Constitutional: COMPLAINS OF: Fatigue, Dizziness, DENIES: Diaphoretic episodes , Fever, Weight gain, Weight loss, Chills Endocrine: DENIES: Abnorml menstrual pattern, Heat/cold intolerance Eyes: COMPLAINS OF: Diplopia, DENIES: Blurred vision, Eye inflammation, Eye pain, Vision loss Ears, nose, mouth, throat: DENIES: Tinnitus, Hearing loss, Vertigo, Nasal discharge, Oral lesions, Throat pain Respiratory: DENIES: Cough, Snoring, Wheezing, Hemoptysis Cardiovascular: DENIES: Chest pain, Palpitations, Syncope, Dyspnea on Exertion , PND, Lower Extremity Edema, Orthopnea Gastrointestinal: DENIES: Abdominal pain, Black stools, Bloody stools, Constipation, Diarrhea, Nausea, Vomiting Genitourinary: DENIES: Abnormal vaginal bleeding, Dysmenorrhea Musculoskeletal: DENIES: Joint pain, Muscle aches, Stiffness, Joint Swelling, Back pain Integumentary: DENIES: Abnormal pigmentation, Pruritus, Rash Hematologic/lymphatic: DENIES: Bruising, Lymphadenopathy Immunologic/allergic: DENIES: Eczema, Urticaria Neurologic: COMPLAINS OF: Localized weakness, DENIES: Abnormal gait, Paresthesias, Seizures Psychiatric: DENIES: Anxiety, Confusion, Mood changes, Depression, Hallucinations, Agitation Past Family Social History Past Medical History Hx Anticoagulant Therapy: Yes (XARELTO) Arthritis: Yes Asthma: Yes Cancer: Yes (BREAST AND BLADDER,THYROID ) Cardiovascular Problems: Yes (htn,DE) Chemotherapy: Yes (MASTECTOMY) COPD: Yes Cerebrovascular Accident: Yes Diabetes: No Diminished Hearing: Yes Endocrine: No Gastrointestinal Disorders: No Genitourinary: No Hepatitis: No Hiatal Hernia: No Hypertension: Yes Immune Disorder: No Musculoskeletal: Yes Neurologic: Yes (dystonia) Psychiatric: No Reproductive: No Respiratory: Yes Immunizations Current: No Myocardial Infarction: Yes Thyroid Disease: Yes (CA THYROID) Menopausal: Yes Past Surgical History Abdominal Surgery: Yes AICD: No Appendectomy: Yes Cholecystectomy: Yes Ear Surgery: No Endocrine Surgery: Yes (THROIDECTOMY) Eye Surgery: No Genitourinary Surgery: Yes (BLADDER) Gynecologic Surgery: Yes (HYSTERECTOMY) Hysterectomy: Yes Joint Replacement: Yes Mastectomy: Yes (LEFT) Neurologic Surgery: Yes (BRAIN TUMOR REMOVED) Oral Surgery: No Pacemaker: No Tonsillectomy: Yes Other Surgery: Yes (THYROID REMOVED) Reported Medications Reported Meds & Active Scripts Active Reported Omeprazole 40 Mg Cap 40 Mg PO DAILY Xarelto (Rivaroxaban) 20 Mg Tab 20 Mg PO DAILY Metoprolol Tartrate 25 Mg Tab 25 Mg PO BID Synthroid (Levothyroxine Sodium) 125 Mcg Tab 125 Mcg PO DAILY Lorazepam 1 Mg Tab 1 Mg PO TID PRN Anoro Ellipta Inh (Umeclidinium/Vilanterol) 62.5-25 Mcg/Act Aero 1 Puff INH DAILY Allergies: Coded Allergies: shellfish derived (Unverified Allergy, Severe, Shortness of Breath, ) tiotropium (Unverified Allergy, Severe, rash, 10/27/16) codeine (Unverified Allergy, Unknown, NAUSEA AND VOMITIMG, 10/27/16) Active Ordered Medications Current Medications IV Flush 2 ml 2 ml UNSCH PRN IV FLUSH FLUSH AFTER USING IV ACCESS; Start at 12:45 Sodium Chloride 1,000 ml @ 999 mls/hr BOLUS ONCE IV Last administered on 10/27 13:15; Start 10/27/16 at 12:45; Stop 10/27/16 at 13:45; Status DC Sodium Chloride 1,000 ml @ 999 mls/hr BOLUS ONCE IV ; Start 10/27/16 at 14:30 ; Stop 10/27/16 at 15:30 Ceftriaxone Sodium/Sodium Chloride (Rocephin Inj/NS Inj) 100 ml @ 200 mls/hr ONCE ONCE IV Last administered on 10/27/16 15:01; Start 10/27/16 at 14:45; Stop 10/27/16 at 15:14; Status DC Levothyroxine Sodium (Synthroid) 125 mcg DAILY PO ; Start 10/27/16 at 15:15; Status UNV Lorazepam (Ativan) 1 mg TID PRN PO ANXIETY; Start 10/27/16 at 15:15; Status UNV Metoprolol Tartrate (Lopressor) 25 mg BID PO ; Start 10/27/16 at 21:00; Status UNV Rivaroxaban (Xarelto) 20 mg DAILY PO ; Start 10/27/16 at 15:15; Status UNV Non-Formulary Medication 40 mg DAILY PO ; Start 10/27/16 at 15:15; Status UNV Family History Denies any family history of tobacco abuse Social History Denies any tobacco Lives with her in the area locally occasional alcohol Physical Exam Vital Signs Vital Signs Date Time Temp Pulse Resp B/P Pulse Ox O2 Delivery O2 Flow Rate FiO2 10/27/16 14:30 94 22 104/59 98 Room Air 10/27/16 13:15 92 20 96/65 100 Room Air 10/27/16 12:46 100 Room Air 10/27/16 12:38 103 19 88/51 96 Room Air 10/27/16 12:13 98.5 91 18 81/58 93 Room Air Physical Exam GENERAL: This is a well-nourished, well-developed patient, in no apparent distress. SKIN: No rashes, ecchymoses or lesions. Cool and dry. HEAD: Atraumatic. Normocephalic. No temporal or scalp tenderness. EYES: Pupils equal round and reactive. Extraocular motions intact. No scleral icterus. No injection or drainage. ENT: Nose without bleeding, purulent drainage or septal hematoma. Throat without erythema, tonsillar hypertrophy or exudate. Uvula midline. Airway patent. Tongue midline NECK: Trachea midline. No JVD or lymphadenopathy. Supple, nontender, no meningeal signs. CARDIOVASCULAR: IRRegular rate and rhythm without murmurs, gallops, or rubs. S1 and S2 no S3 or S4 RESPIRATORY: Clear to auscultation. Breath sounds equal bilaterally. No wheezes , rales, or rhonchi. GASTROINTESTINAL: Abdomen soft, non-tender, nondistended. No hepato-splenomegaly , or palpable masses. No guarding. MUSCULOSKELETAL: Extremities without clubbing, cyanosis, or edema. No joint tenderness, effusion, or edema noted. No calf tenderness. Negative Homans sign bilaterally. NEUROLOGICAL: Awake and alert. Cranial nerves II through XII intact. Motor and sensory grossly within normal limits. Five out of 5 muscle strength in all muscle groups. Normal speech. Insight and judgment appear good mood and behaviors appropriate Laboratory Laboratory Tests Test 10/27/16 10/27/16 13:05 13:50 White Blood Count 12.7 Red Blood Count 4.12 Hemoglobin 11.8 Hematocrit 37.6 Mean Corpuscular Volume 91.1 Mean Corpuscular Hemoglobin 28.7 Mean Corpuscular Hemoglobin 31.5 Concent Red Cell Distribution Width 17.3 Platelet Count 307 Mean Platelet Volume 8.1 Neutrophils (%) (Auto) 92.7 Lymphocytes (%) (Auto) 2.6 Monocytes (%) (Auto) 4.6 Eosinophils (%) (Auto) 0.0 Basophils (%) (Auto) 0.1 Neutrophils # (Auto) 11.8 Lymphocytes # (Auto) 0.3 Monocytes # (Auto) 0.6 Eosinophils # (Auto) 0.0 Basophils # (Auto) 0.0 CBC Comment DIFF FINAL Differential Comment Prothrombin Time 14.4 Prothromb Time International 1.3 Ratio Activated Partial 34.1 Thromboplast Time Sodium Level 140 Potassium Level 3.5 Chloride Level 103 Carbon Dioxide Level 26.2 Anion Gap 11 Blood Urea Nitrogen 19 Creatinine 1.20 Estimat Glomerular Filtration 44 Rate Random Glucose 165 Lactic Acid Level 2.7 Calcium Level 8.7 Total Bilirubin 0.7 Aspartate Amino Transf 26 (AST/SGOT) Alanine Aminotransferase 16 (ALT/SGPT) Alkaline Phosphatase 119 Total Creatine Kinase 706 Creatine Kinase MB 4.0 Creatine Kinase MB % 0.6 Troponin I 0.05 Total Protein 7.1 Albumin 3.2 Thyroid Stimulating Hormone 0.045 3rd Gen Urine Color YELLOW Urine Turbidity CLOUDY Urine pH 6.0 Urine Specific Grundy 1.019 Urine Protein 100 Urine Glucose (UA) NEG Urine Ketones NEG Urine Occult Blood MOD Urine Nitrite NEG Urine Bilirubin NEG Urine Urobilinogen 2.0 Urine Leukocyte Esterase LARGE Urine RBC 83 Urine WBC Urine WBC Clumps FEW Urine Squamous Epithelial 2 Cells Urine Bacteria MOD Urine Hyaline Casts 53 Urine Mucus FEW Microscopic Urinalysis Comment CULTURE INDICATED Date/Time Procedure Status Source Growth 10/27/16 13:50 Urine Culture Received Urine Clean Catch Pending 10/27/16 13:00 Aerobic Blood Culture Received Blood Peripheral Pending 10/27/16 13:00 Anaerobic Blood Culture Received Blood Peripheral Pending Result Diagram: 10/27/16 1305 10/27/16 1305 Imaging Last Impressions Head CT 10/27/16 1235 Signed Impressions: Service Date/Time: Thursday, October 27, 2016 12:55 - CONCLUSION: 1. No acute hemorrhage or mass effect. 2. Atrophy and stable encephalomalacia in both frontal lobes. 3. Remote postsurgical changes status post craniotomy. Isauro Chester MD Chest X-Ray 10/27/16 1235 Signed Impressions: Service Date/Time: Thursday, October 27, 2016 13:25 - CONCLUSION: 1. COPD changes and calcified granuloma stable compared to previous. 2. Advanced degenerative changes in the shoulders with osteochondral bodies on the right. Bon Cavazos MD Septic Shock Reassessment Heart: Irregular Lungs: Clear Skin: Cold Peripheral Pulses: Bounding Right Radial Bounding Left Radial Bounding Right Popliteal Bounding Left Popliteal Bounding Right Dorsalis Pedis Bounding Left Dorsalis Pedis Bounding Right Posterior Tibial Bounding Left Posterior Tibial Capillary Refill: Brisk Assessment and Plan Problem List: (1) Pyelonephritis ICD Code: N12 Status: Acute (2) Atrial fibrillation ICD Code: I48.91 Status: Acute (3) Sepsis ICD Code: A41.9 Status: Acute (4) UTI (urinary tract infection) ICD Code: N39.0 Status: Acute Assessment and Plan Pyelonephritis/urinary tract infection/sepsis we will start on Rocephin as well as fluids as physical therapy and occupational therapy to eval and treat Atrial fibrillation on chronic Xarelto resume home dose GERD resume home medication PPI Atrial fibrillation continue on her beta handy Hypothyroidism continue on her replacement therapy Continue aggressive fluid rehydration for the pyelonephritis and urinary tract infection sepsis COPD resume neb treatments as needed for shortness of breath Needs aggressive physical therapy and occupational therapy am labs History of breast cancer status post left mastectomy Code Status Full code Discussed Condition With Status with patient and RN and emergency room practitioner Problem Qualifiers (1) Sepsis: Qualified Code: A41.9 - Sepsis, due to unspecified organism (2) UTI (urinary tract infection): Qualified Code: N30.01 - Acute cystitis with hematuria Kemal Ferrer DO Oct 27, 2016 15:29
[2016-10-27] MEDS: SODIUM CHLOR 0.9% 1000 ML INJ 1,000 ML IV SCH (19:53)
[2016-10-27] MEDS: DOCUSATE SODIUM 50 MG/SENNA 8.6 MG TAB PO SCH (20:03)
[2016-10-27 20:36] LABS: CKMB 4.2 NG/ML (0.5-3.6)
[2016-10-27] MEDS: METOPROLOL TARTRATE 25 MG TAB PO SCH (20:59)
[2016-10-27] MEDS: SODIUM CHLORIDE 0.9% FLUSH 10 ML FLUSH IV FLUSH SCH (20:59)
[2016-10-27] MEDS ORDERED: SODIUM CHLORIDE 0.9% FLUSH 10 ML FLUSH IV FLUSH SCH (21:00)
[2016-10-28] VITALS: BP 107/62; PULSE 82; PULSE 94; RESP 20; TEMP 98.5; O2SAT 96
[2016-10-28] MEDS: SODIUM CHLOR 0.9% 1000 ML INJ 1,000 ML IV SCH ×2 (01:13→10:52)
[2016-10-28 01:42] LABS: MEAN CELL VOLUME 91.5 FL (80.0-100.0); MEAN CORPUSCULAR HEMOGLOBIN 29.3 PG (27.0-34.0); PLATELET COUNT 254 TH/MM3 (150-450); RED BLOOD COUNT 3.28 MIL/MM3 (4.00-5.30); RED CELL DISTRIBUTION WIDTH 17.2 % (11.6-17.2); WHITE BLOOD COUNT 7.9 TH/MM3 (4.0-11.0)
[2016-10-28 01:46] LABS: HEMO FLAGS AUTO DIFF
[2016-10-28 01:58] LABS: ALT (GPT) 14 U/L (10-53); ANION GAP 8 MEQ/L (5-15); AST (GOT) 24 U/L (15-37); BICARBONATE 24.4 MEQ/L (21.0-32.0); BLOOD UREA NITROGEN 16 MG/DL (7-18); CHLORIDE 109 MEQ/L (98-107); GLOMERULAR FILTRATION RATE 136 ML/MIN (>89); MAGNESIUM 1.8 MG/DL (1.5-2.5); POTASSIUM 3.3 MEQ/L (3.5-5.1); SODIUM (NA) 141 MEQ/L (136-145)
[2016-10-28 02:07] LABS: CKMB 2.5 NG/ML (0.5-3.6)
[2016-10-28 02:17] LABS: ACANTHOCYTES 1+ (NORMAL); BANDS 5 % (0-6); NEUTROPHIL # MANUAL DIFF 7.3 TH/MM3 (1.8-7.7); OVALOCYTES 1+ (NORMAL); PLATELET ESTIMATE SMEAR NORMAL (NORMAL); PLATELET MORPHOLOGY NORMAL (NORMAL); POLYS (SEG NEUTROPHILS) 87 % (16-70); SCAN/DIFF FINAL DIFF MANUAL; WBC DIFF SAMPLE 100
[2016-10-28 02:18] LABS: ALKALINE PHOSPHATASE 91 U/L (45-117); FREE T4 1.57 NG/DL (0.76-1.46); TOTAL BILIRUBIN ADULT 0.5 MG/DL (0.2-1.0)
[2016-10-28 04:00] VITALS: BP 123/84; PULSE 91; RESP 20; TEMP 97.5; O2SAT 96
[2016-10-28] MEDS: LEVOTHYROXINE SODIUM 125 MCG TAB PO SCH (05:40)
[2016-10-28 08:00] VITALS: BP 132/76; PULSE 108; RESP 15; TEMP 99.5; O2SAT 93
[2016-10-28 08:01] VITALS: PULSE 98
[2016-10-28] MEDS: PANTOPRAZOLE SOD 40 MG DELAYED RELEASE TAB PO SCH (09:00)
[2016-10-28] MEDS: UMECLIDINIUM 62.5 MCG/VILANTEROL 25 MCG INHALER INH SCH (09:06)
[2016-10-28] MEDS: SODIUM CHLORIDE 0.9% FLUSH 10 ML FLUSH IV FLUSH SCH (09:07)
[2016-10-28] MEDS: METOPROLOL TARTRATE 25 MG TAB PO SCH (09:08)
[2016-10-28] MEDS: RIVAROXABAN 20 MG TAB PO SCH (09:08)
[2016-10-28] MEDS: DOCUSATE SODIUM 50 MG/SENNA 8.6 MG TAB PO SCH (09:08)
--- NOTE | 2016-10-28 09:09 | EKG ---
Date Performed: 10/27/2016 Time Performed: 19:40:43 PTAGE: 76 years EKG: ATRIAL FIBRILLATION WITH RAPID VENTRICULAR RESPONSE WITH ABERRANT CONDUCTION OR VENTRICULAR PREMATURE COMPLEXES BORDERLINE RIGHT AXIS DEVIATION ABNORMAL RHYTHM ECG NO PREVIOUS TRACING DOCTOR: Yadiel Andrews Interpretating Date/Time 10/28/2016 09:01:22
--- NOTE | 2016-10-28 09:22 | EKG ---
Date Performed: 10/27/2016 Time Performed: 12:46:56 PTAGE: 76 years EKG: ATRIAL FIBRILLATION WITH RAPID VENTRICULAR RESPONSE LOW QRS VOLTAGE IN EXTREMITY LEADS MINI MAL VOLTAGE CRITERIA FOR LVH, CONSIDER NORMAL VARIANT NONSPECIFIC T-WAVE ABNORMALITY ABNORMAL RHYTHM ECG PREVIOUS TRACING : 03/25/2016 15.45 Compared to prior tracing no significant change DOCTOR: Yadiel Andrews Interpretating Date/Time 10/28/2016 09:09:06
[2016-10-28 09:37] VITALS: PULSE 142
--- NOTE | 2016-10-28 10:16 | HHI.PR ---
Subjective Remarks 76- year old female with a PMHx of a fib, CVA, COPD, HTN, Hypothyroidism, and GERD presents to the ED complaining of altered mental status since around 7:30 this morning. Patient does not recall any of the event. Per patient's , he got home and found the patient on the toilet slumped over. The patient possibly hit the right side of her head on a safety railing on the wall next to the toilet, but denies any loss of consciousness. The insisted on bringing her to the ED, but she wanted to shower and get dressed before coming in, which caused a delay getting here. The patient has some right sided weakness but she reports that is her baseline and had that for the past 12 years. The patient denies any chest pain, shortness of breath, or any pain. She reports she takes blood thinners including Xarelto. She initially denied any hx of a fib, however, prior records indicate A fib. Was found to have a urinary tract infection will be placed on Rocephin and will be given fluids will be monitored tonight 10-28 CONTINUE ANTIBIOTICS DW RN AND PT Patient wants to go home. We'll switch from Rocephin IV to Omnicef by mouth twice a day and can go home later today We'll ask home health care to eval and treat at discharge. With home healthcare and RN and physical therapy Objective Vitals Vital Signs Date Time Temp Pulse Resp B/P Pulse Ox O2 Delivery O2 Flow Rate FiO2 10/28/16 08:00 99.5 108 15 132/76 93 10/28/16 04:00 97.5 91 20 123/84 96 10/28/16 00:00 82 10/28/16 00:00 98.5 94 20 107/62 96 10/27/16 20:50 129/80 10/27/16 20:01 98.2 102 20 159/92 99 10/27/16 19:24 97 18 114/80 96 Room Air 10/27/16 18:32 97 21 10/27/16 17:30 99 18 103/73 98 Room Air 10/27/16 16:30 95 19 109/64 99 Room Air 10/27/16 15:30 91 19 93/67 98 Room Air 10/27/16 14:30 94 22 104/59 98 Room Air 10/27/16 13:15 92 20 96/65 100 Room Air 10/27/16 12:46 100 Room Air 10/27/16 12:38 103 19 88/51 96 Room Air 10/27/16 12:13 98.5 91 18 81/58 93 Room Air I/O 10/27/16 10/27/16 10/27/16 10/28/16 10/28/16 10/28/16 06:59 14:59 22:59 06:59 14:59 22:59 Intake Total 120 ml Balance 120 ml Intake Oral 120 ml # Voids 1 Result Diagram: 10/28/16 0126 10/28/16 0126 Other Results Laboratory Tests Test 10/27/16 10/27/16 10/27/16 10/27/16 13:05 13:50 17:50 19:36 White Blood Count 12.7 TH/MM3 Red Blood Count 4.12 MIL/MM3 Hemoglobin 11.8 GM/DL Hematocrit 37.6 % Mean Corpuscular Volume 91.1 FL Mean Corpuscular Hemoglobin 28.7 PG Mean Corpuscular Hemoglobin 31.5 % Concent Red Cell Distribution Width 17.3 % Platelet Count 307 TH/MM3 Mean Platelet Volume 8.1 FL Neutrophils (%) (Auto) 92.7 % Lymphocytes (%) (Auto) 2.6 % Monocytes (%) (Auto) 4.6 % Eosinophils (%) (Auto) 0.0 % Basophils (%) (Auto) 0.1 % Neutrophils # (Auto) 11.8 TH/MM3 Lymphocytes # (Auto) 0.3 TH/MM3 Monocytes # (Auto) 0.6 TH/MM3 Eosinophils # (Auto) 0.0 TH/MM3 Basophils # (Auto) 0.0 TH/MM3 CBC Comment DIFF FINAL Differential Comment Prothrombin Time 14.4 SEC Prothromb Time International 1.3 RATIO Ratio Activated Partial 34.1 SEC Thromboplast Time Sodium Level 140 MEQ/L Potassium Level 3.5 MEQ/L Chloride Level 103 MEQ/L Carbon Dioxide Level 26.2 MEQ/L Anion Gap 11 MEQ/L Blood Urea Nitrogen 19 MG/DL Creatinine 1.20 MG/DL Estimat Glomerular Filtration 44 ML/MIN Rate Random Glucose 165 MG/DL Lactic Acid Level 2.7 mmol/L 1.2 mmol/L Calcium Level 8.7 MG/DL Total Bilirubin 0.7 MG/DL Aspartate Amino Transf 26 U/L (AST/SGOT) Alanine Aminotransferase 16 U/L (ALT/SGPT) Alkaline Phosphatase 119 U/L Total Creatine Kinase 706 U/L 753 U/L Creatine Kinase MB 4.0 NG/ML 4.2 NG/ML Creatine Kinase MB % 0.6 % 0.6 % Troponin I 0.05 NG/ML 0.02 NG/ML Total Protein 7.1 GM/DL Albumin 3.2 GM/DL Thyroid Stimulating Hormone 0.045 uIU/ML 3rd Gen Urine Color YELLOW Urine Turbidity CLOUDY Urine pH 6.0 Urine Specific [place] 1.019 Urine Protein 100 mg/dL Urine Glucose (UA) NEG mg/dL Urine Ketones NEG mg/dL Urine Occult Blood MOD Urine Nitrite NEG Urine Bilirubin NEG Urine Urobilinogen 2.0 MG/DL Urine Leukocyte Esterase LARGE Urine RBC 83 /hpf Urine WBC /hpf Urine WBC Clumps FEW Urine Squamous Epithelial 2 /hpf Cells Urine Bacteria MOD /hpf Urine Hyaline Casts 53 /lpf Urine Mucus FEW /lpf Microscopic Urinalysis Comment CULTURE INDICATED Test 10/28/16 01:26 White Blood Count 7.9 TH/MM3 Red Blood Count 3.28 MIL/MM3 Hemoglobin 9.6 GM/DL Hematocrit 30.0 % Mean Corpuscular Volume 91.5 FL Mean Corpuscular Hemoglobin 29.3 PG Mean Corpuscular Hemoglobin 32.0 % Concent Red Cell Distribution Width 17.2 % Platelet Count 254 TH/MM3 Mean Platelet Volume 7.9 FL Neutrophils (%) (Auto) % Lymphocytes (%) (Auto) % Monocytes (%) (Auto) % Eosinophils (%) (Auto) % Basophils (%) (Auto) % Neutrophils # (Auto) TH/MM3 Lymphocytes # (Auto) TH/MM3 Monocytes # (Auto) TH/MM3 Eosinophils # (Auto) TH/MM3 Basophils # (Auto) TH/MM3 CBC Comment AUTO DIFF Differential Total Cells 100 Counted Neutrophils % (Manual) 87 % Band Neutrophils % 5 % Lymphocytes % 5 % Monocytes % 3 % Neutrophils # (Manual) 7.3 TH/MM3 Differential Comment FINAL DIFF MANUAL Platelet Estimate NORMAL Platelet Morphology Comment NORMAL Ovalocytes 1+ Acanthocytes 1+ Sodium Level 141 MEQ/L Potassium Level 3.3 MEQ/L Chloride Level 109 MEQ/L Carbon Dioxide Level 24.4 MEQ/L Anion Gap 8 MEQ/L Blood Urea Nitrogen 16 MG/DL Creatinine 0.45 MG/DL Estimat Glomerular Filtration 136 ML/MIN Rate Random Glucose 90 MG/DL Lactic Acid Level 0.6 mmol/L Calcium Level 7.6 MG/DL Phosphorus Level 2.5 MG/DL Magnesium Level 1.8 MG/DL Total Bilirubin 0.5 MG/DL Aspartate Amino Transf 24 U/L (AST/SGOT) Alanine Aminotransferase 14 U/L (ALT/SGPT) Alkaline Phosphatase 91 U/L Total Creatine Kinase 598 U/L Creatine Kinase MB 2.5 NG/ML Creatine Kinase MB % 0.4 % Troponin I 0.03 NG/ML Total Protein 5.6 GM/DL Albumin 2.5 GM/DL Free Thyroxine 1.57 NG/DL Thyroid Stimulating Hormone 0.028 uIU/ML 3rd Gen Imaging Last Impressions Head CT 10/27/16 1235 Signed Impressions: Service Date/Time: Thursday, October 27, 2016 12:55 - CONCLUSION: 1. No acute hemorrhage or mass effect. 2. Atrophy and stable encephalomalacia in both frontal lobes. 3. Remote postsurgical changes status post craniotomy. Isauro Chester MD Chest X-Ray 10/27/16 1235 Signed Impressions: Service Date/Time: Thursday, October 27, 2016 13:25 - CONCLUSION: 1. COPD changes and calcified granuloma stable compared to previous. 2. Advanced degenerative changes in the shoulders with osteochondral bodies on the right. Bon Cavazos MD Objective Remarks GENERAL: This is a well-nourished, well-developed patient, in no apparent distress. SKIN: No rashes, ecchymoses or lesions. Cool and dry. HEAD: Atraumatic. Normocephalic. No temporal or scalp tenderness. EYES: Pupils equal round and reactive. Extraocular motions intact. No scleral icterus. No injection or drainage. ENT: Nose without bleeding, purulent drainage or septal hematoma. Throat without erythema, tonsillar hypertrophy or exudate. Uvula midline. Airway patent. Tongue midline NECK: Trachea midline. No JVD or lymphadenopathy. Supple, nontender, no meningeal signs. CARDIOVASCULAR: IRRegular rate and rhythm without murmurs, gallops, or rubs. S1 and S2 no S3 or S4 RESPIRATORY: Clear to auscultation. Breath sounds equal bilaterally. No wheezes , rales, or rhonchi. GASTROINTESTINAL: Abdomen soft, non-tender, nondistended. No hepato-splenomegaly , or palpable masses. No guarding. MUSCULOSKELETAL: Extremities without clubbing, cyanosis, or edema. No joint tenderness, effusion, or edema noted. No calf tenderness. Negative Homans sign bilaterally. NEUROLOGICAL: Awake and alert. Cranial nerves II through XII intact. Motor and sensory grossly within normal limits. Five out of 5 muscle strength in all muscle groups. Normal speech. Insight and judgment appear good mood and behaviors appropriate Medications and IVs Current Medications IV Flush 2 ml 2 ml UNSCH PRN IV FLUSH FLUSH AFTER USING IV ACCESS; Start at 12:45; Stop 10/27/16 at 15:24; Status DC Sodium Chloride 1,000 ml @ 999 mls/hr BOLUS ONCE IV Last administered on 10/27 13:15; Start 10/27/16 at 12:45; Stop 10/27/16 at 13:45; Status DC Sodium Chloride 1,000 ml @ 999 mls/hr BOLUS ONCE IV Last administered on 10/27 17:42; Start 10/27/16 at 14:30; Stop 10/27/16 at 15:30; Status DC Ceftriaxone Sodium/Sodium Chloride (Rocephin Inj/NS Inj) 100 ml @ 200 mls/hr ONCE ONCE IV Last administered on 10/27/16 15:01; Start 10/27/16 at 14:45; Stop 10/27/16 at 15:14; Status DC Levothyroxine Sodium (Synthroid) 125 mcg DAILY@06 PO Last administered on 05:40; Start 10/27/16 at 15:15 Lorazepam (Ativan) 1 mg TID PRN PO ANXIETY Last administered on 10/27/16 22:17 ; Start 10/27/16 at 15:15 Metoprolol Tartrate (Lopressor) 25 mg BID PO Last administered on 10/28/16 09: 08; Start 10/27/16 at 21:00 Rivaroxaban (Xarelto) 20 mg DAILY PO Last administered on 10/28/16 09:08; Start 10/27/16 at 15:15 Pantoprazole Sodium 40 mg 40 mg DAILY PO ; Start 10/27/16 at 15:15 Sodium Chloride (NS 1000 ml Inj) 1,000 ml @ 100 mls/hr Q10H IV Last administered on 10/27/16t 19:53; Start 10/27/16 at 15:13 Sodium Chloride (NS Flush) 2 ml UNSCH PRN IV FLUSH FLUSH AFTER USING IV ACCESS ; Start 10/27/16 at 15:15; Stop 10/27/16 at 15:28; Status DC Sodium Chloride (NS Flush) 2 ml BID IV FLUSH ; Start 10/27/16 at 21:00; Stop at 21:00; Status DC Ondansetron HCl (Zofran Inj) 4 mg Q6H PRN IVP NAUSEA OR VOMITING; Start at 15:15 Prochlorperazine (Compazine Supp) 25 mg Q12H PRN RECTAL NAUSEA OR VOMITING; Start 10/27/16 at 15:15 Acetaminophen (Tylenol) 650 mg Q6H PRN PO PAIN SCALE 1 TO 2; Start 10/27/16 at 15:15 Acetaminophen/ Hydrocodone Bitart ([place] 5-325 Mg) 1 tab Q4H PRN PO PAIN SCALE 3 TO 5; Start 10/27/16 at 15:15 Acetaminophen/ Hydrocodone Bitart ([place] 10-325 Mg) 1 tab Q4H PRN PO PAIN SCALE 6 TO 10; Start 10/27/16 at 15:15 Morphine Sulfate (Morphine Inj) 2 mg Q3H PRN IV Pain 3-5; if unable to take PO ; Start 10/27/16 at 15:15 Morphine Sulfate (Morphine Inj) 4 mg Q3H PRN IV Pain 6-10;if unable to take PO ; Start 10/27/16 at 15:15 Naloxone HCl (Narcan Inj) 0.4 mg UNSCH PRN IV SEE LABEL COMMENTS; Start at 15:15 Senna/Docusate Sodium ([place]-Colace) 1 tab BID PO Last administered on 09:08; Start 10/27/16 at 21:00 Magnesium Hydroxide (Milk Of Magnesia Liq) 30 ml Q12H PRN PO MILD - MODERATE CONSTIPATION; Start 10/27/16 at 15:15 Sennosides (Senokot) 17.2 mg Q12H PRN PO MODERATE - SEVERE CONSTIPATION; Start 10/27/16 at 15:15 Bisacodyl (Dulcolax Supp) 10 mg DAILY PRN RECTAL SEVERE CONSITIPATION; Start at 15:15 Lactulose (Lactulose Liq) 30 ml DAILY PRN PO SEVERE CONSITIPATION; Start at 15:15 Sodium Chloride (NS Flush) 2 ml UNSCH PRN IV FLUSH FLUSH AFTER USING IV ACCESS ; Start 10/27/16 at 15:15 Sodium Chloride 2 ml 2 ml BID IV FLUSH Last administered on 10/28/16t 09:07; Start 10/27/16 at 21:00 Ceftriaxone Sodium/Sodium Chloride (Rocephin Inj/NS Inj) 100 ml @ 200 mls/hr Q24H IV ; Start 10/28/16 at 15:00 A/P Problem List: (1) Pyelonephritis ICD Code: N12 Status: Acute (2) Atrial fibrillation ICD Code: I48.91 Status: Acute (3) Sepsis ICD Code: A41.9 Status: Acute (4) UTI (urinary tract infection) ICD Code: N39.0 Status: Acute Assessment and Plan Pyelonephritis/urinary tract infection/sepsis we will start on Rocephin as well as fluids as physical therapy and occupational therapy to eval and treat we'll switch from Rocephin to Omnicef twice a day Atrial fibrillation on chronic Xarelto resume home dose GERD resume home medication PPI Atrial fibrillation continue on her beta handy Hypothyroidism continue on her replacement therapy Continue aggressive fluid rehydration for the pyelonephritis and urinary tract infection sepsis COPD resume neb treatments as needed for shortness of breath Needs aggressive physical therapy and occupational therapy am labs History of breast cancer status post left mastectomy Wants to go home today Plans for home health care with home physical therapy And RN eval and treat Problem Qualifiers (1) Sepsis: Qualified Code: A41.9 - Sepsis, due to unspecified organism (2) UTI (urinary tract infection): Qualified Code: N30.01 - Acute cystitis with hematuria Kemal Ferrer DO Oct 28, 2016 10:16
[2016-10-28] MEDS ORDERED: CEFD125S PO (10:29)
--- NOTE | 2016-10-28 10:30 | HHI.DCPOC ---
Discharge Care Plan Diagnosis: (1) Sepsis (2) Pyelonephritis (3) UTI (urinary tract infection) (4) Atrial fibrillation Your Health Problems Are: Urinary Difficulties Goals to Promote Your Health * To prevent worsening of your condition and complications * To maintain your health at the optimal level Directions to Meet Your Goals Take your medications as prescribed Follow your dietary instruction Follow activity as directed Keep your appointments as scheduled Take your immunizations and boosters as scheduled If your symptoms worsen call your PCP, if no PCP go to Urgent Care Center or Emergency Room Smoking is Dangerous to Your Health. Avoid second hand smoke Call the 24-hour hour crisis hotline for domestic abuse at Kemal Ferrer DO Oct 28, 2016 10:30
--- NOTE | 2016-10-28 10:34 | HHI.DS ---
Discharge Summary Admission Date Oct 27, 2016 at 15:02 Discharge Date: Oct 28, 2016 Admitting Diagnosis sepsis/UTI (1) Pyelonephritis ICD Code: N12 Diagnosis: Principal (2) Atrial fibrillation ICD Code: I48.91 Diagnosis: Secondary (3) Sepsis ICD Code: A41.9 Diagnosis: Principal (4) UTI (urinary tract infection) ICD Code: N39.0 Diagnosis: Principal Procedures NONE Brief History - From Admission 76- year old female with a PMHx of a fib, CVA, COPD, HTN, Hypothyroidism, and GERD presents to the ED complaining of altered mental status since around 7:30 this morning. Patient does not recall any of the event. Per patient's , he got home and found the patient on the toilet slumped over. The patient possibly hit the right side of her head on a safety railing on the wall next to the toilet, but denies any loss of consciousness. The insisted on bringing her to the ED, but she wanted to shower and get dressed before coming in, which caused a delay getting here. The patient has some right sided weakness but she reports that is her baseline and had that for the past 12 years. The patient denies any chest pain, shortness of breath, or any pain. She reports she takes blood thinners including Xarelto. She initially denied any hx of a fib, however, prior records indicate A fib. Was found to have a urinary tract infection will be placed on Rocephin and will be given fluids will be monitored tonight CBC/BMP: 10/28/16 0126 10/28/16 0126 Significant Findings Laboratory Tests Test 10/27/16 10/27/16 10/27/16 10/28/16 13:05 13:50 19:36 01:26 Prothrombin Time 14.4 SEC (9.8-11.6) Activated Partial 34.1 SEC Thromboplast Time (24.3-30.1) Blood Urea Nitrogen 19 MG/DL (7-18) Creatinine 1.20 MG/DL 0.45 MG/DL (0.50-1.00) (0.50-1.00) Estimat Glomerular Filtration 44 ML/MIN (>89) Rate Random Glucose 165 MG/DL (74-106) Lactic Acid Level 2.7 mmol/L (0.4-2.0) Alkaline Phosphatase 119 U/L (45-117) Total Creatine Kinase 706 U/L 753 U/L 598 U/L (26-192) (26-192) (26-192) Creatine Kinase MB 4.0 NG/ML 4.2 NG/ML (0.5-3.6) (0.5-3.6) Albumin 3.2 GM/DL 2.5 GM/DL (3.4-5.0) (3.4-5.0) Thyroid Stimulating Hormone 0.045 uIU/ML 0.028 uIU/ML 3rd Gen (0.358-3.740) (0.358-3.740) White Blood Count 12.7 TH/MM3 (4.0-11.0) Mean Corpuscular Hemoglobin 31.5 % Concent (32.0-36.0) Red Cell Distribution Width 17.3 % (11.6-17.2) Neutrophils (%) (Auto) 92.7 % (16.0-70.0) Lymphocytes (%) (Auto) 2.6 % (9.0-44.0) Neutrophils # (Auto) 11.8 TH/MM3 (1.8-7.7) Lymphocytes # (Auto) 0.3 TH/MM3 (1.0-4.8) Urine Turbidity CLOUDY (CLEAR) Urine Protein 100 mg/dL (NEG-TRACE) Urine Occult Blood MOD (NEG) Urine Leukocyte Esterase LARGE (NEG) Urine RBC 83 /hpf (0-3) Urine WBC Clumps FEW (NONE) Urine Bacteria MOD /hpf (NONE) Urine Mucus FEW /lpf (OCC) Red Blood Count 3.28 MIL/MM3 (4.00-5.30) Hemoglobin 9.6 GM/DL (11.6-15.3) Hematocrit 30.0 % (35.0-46.0) Neutrophils % (Manual) 87 % (16-70) Lymphocytes % 5 % (9-44) Ovalocytes 1+ (NORMAL) Acanthocytes 1+ (NORMAL) Potassium Level 3.3 MEQ/L (3.5-5.1) Chloride Level 109 MEQ/L (98-107) Calcium Level 7.6 MG/DL (8.5-10.1) Total Protein 5.6 GM/DL (6.4-8.2) Free Thyroxine 1.57 NG/DL (0.76-1.46) Imaging Last Impressions Head CT 10/27/16 1235 Signed Impressions: Service Date/Time: Thursday, October 27, 2016 12:55 - CONCLUSION: 1. No acute hemorrhage or mass effect. 2. Atrophy and stable encephalomalacia in both frontal lobes. 3. Remote postsurgical changes status post craniotomy. Isauro Chester MD Chest X-Ray 10/27/16 1235 Signed Impressions: Service Date/Time: Thursday, October 27, 2016 13:25 - CONCLUSION: 1. COPD changes and calcified granuloma stable compared to previous. 2. Advanced degenerative changes in the shoulders with osteochondral bodies on the right. Bon Cavazos MD PE at Discharge GENERAL: This is a well-nourished, well-developed patient, in no apparent distress. SKIN: No rashes, ecchymoses or lesions. Cool and dry. HEAD: Atraumatic. Normocephalic. No temporal or scalp tenderness. EYES: Pupils equal round and reactive. Extraocular motions intact. No scleral icterus. No injection or drainage. ENT: Nose without bleeding, purulent drainage or septal hematoma. Throat without erythema, tonsillar hypertrophy or exudate. Uvula midline. Airway patent. Tongue midline NECK: Trachea midline. No JVD or lymphadenopathy. Supple, nontender, no meningeal signs. CARDIOVASCULAR: IRRegular rate and rhythm without murmurs, gallops, or rubs. S1 and S2 no S3 or S4 RESPIRATORY: Clear to auscultation. Breath sounds equal bilaterally. No wheezes , rales, or rhonchi. GASTROINTESTINAL: Abdomen soft, non-tender, nondistended. No hepato-splenomegaly , or palpable masses. No guarding. MUSCULOSKELETAL: Extremities without clubbing, cyanosis, or edema. No joint tenderness, effusion, or edema noted. No calf tenderness. Negative Homans sign bilaterally. NEUROLOGICAL: Awake and alert. Cranial nerves II through XII intact. Motor and sensory grossly within normal limits. Five out of 5 muscle strength in all muscle groups. Normal speech. Insight and judgment appear good mood and behaviors appropriate Pt update on day of discharge Patient is much more awake and alert today. Wants to go home. Switch to oral antibiotics with Omnicef 300 mg 1 by mouth twice a day for 10 more days Hospital Course 76- year old female with a PMHx of a fib, CVA, COPD, HTN, Hypothyroidism, and GERD presents to the ED complaining of altered mental status since around 7:30 this morning. Patient does not recall any of the event. Per patient's , he got home and found the patient on the toilet slumped over. The patient possibly hit the right side of her head on a safety railing on the wall next to the toilet, but denies any loss of consciousness. The insisted on bringing her to the ED, but she wanted to shower and get dressed before coming in, which caused a delay getting here. The patient has some right sided weakness but she reports that is her baseline and had that for the past 12 years. The patient denies any chest pain, shortness of breath, or any pain. She reports she takes blood thinners including Xarelto. She initially denied any hx of a fib, however, prior records indicate A fib. Was found to have a urinary tract infection will be placed on Rocephin and will be given fluids will be monitored tonight Patient did well overnight With fluids and antibiotics Has improved wishes to be discharged home will discharge to home with home health care Pt Condition on Discharge: Stable Discharge Disposition: Disch w/ Home Health Serv Discharge Time: > 30 minutes Discharge Instructions DIET: Follow Instructions for: Heart Healthy Diet Activities you can perform: Regular-No Restrictions Follow up Referrals: PCP Follow-up - 1 Week with Casandra Mayberry MD New Medications: ([Omnicef]) 300MG TAB 1 TAB PO BID Infection #20 TAB Continued Medications: Levothyroxine (Synthroid) 125 Mcg Tab 125 MCG PO DAILY Thyroid #30 Ref 0 TAB Lorazepam (Lorazepam) 1 Mg Tab 1 MG PO TID PRN ANXIETY Ref 0 TAB Metoprolol Tartrate (Metoprolol Tartrate) 25 Mg Tab 25 MG PO BID #60 Ref 0 TAB Omeprazole (Omeprazole) 40 Mg Cap 40 MG PO DAILY #30 Ref 0 CAP Rivaroxaban (Xarelto) 20 Mg Tab 20 MG PO DAILY Blood Clot Prevention Ref 0 TAB Umeclidinium-Vilanterol Inh (Anoro Ellipta Inh) 62.5-25 Mcg/Act Aero 1 PUFF INH DAILY COPD #1 Ref 0 INHALER Kemal Ferrer DO Oct 28, 2016 10:34
--- NOTE | 2016-10-28 10:36 | HHI.FF ---
Face to Face Verification Diagnosis: (1) UTI (urinary tract infection) (2) Sepsis (3) Pyelonephritis (4) Atrial fibrillation Physical Therapy Order: Evaluate and Treat Occupational Therapy Order: Evaluate and Treat Home Health Nursing Order: Medical education Medication education-adverse effect Home Health Aide Order: To Assist In: Bathing and personal care I have seen patient Swathi Ortiz on 10/28/16. My clinical findings support the need for the requested home health care services because: Ltd mobility - disease progression Deconditioned w/ increased weakness High risk of falls I certify that my clinical findings support that this patient is homebound because: Unsteady gait/balance Need for psychosocial assistance Kemal Ferrer DO Oct 28, 2016 10:36
[2016-10-28] MEDS ORDERED: cefTRIAXone INJ 1,000 MG in SODIUM CHLORIDE 0.9% INJ 100 ML IV SCH (15:00)
[2016-10-28 15:57] LABS: HEMOGLOBIN A1a 1.6 %; HEMOGLOBIN A1b 0.8 %; HEMOGLOBIN LA1C 1.7 %; HEMOGLOBIN P3 3.8 %
== END 2016-10-28 12:22 | disposition home health service (06) ==
LOC: NEPC 12:10 → UNDOADMIN 15:00 → NEDA 15:00 → N05B 21:27
PROVIDERS: ADMIT Hospitalist; ATTEND Hospitalist
DX: N12 Tubulo-interstitial nephritis, not specified as acute or chronic (principal); N30.01 Acute cystitis with hematuria; K21.9 Gastro-esophageal reflux disease without esophagitis; J44.9 Chronic obstructive pulmonary disease, unspecified; I48.91 Unspecified atrial fibrillation; B96.20 Unspecified Escherichia coli [E. coli] as the cause of diseases classified elsewhere; I25.2 Old myocardial infarction; E03.9 Hypothyroidism, unspecified; J45.909 Unspecified asthma, uncomplicated; M19.90 Unspecified osteoarthritis, unspecified site; Z86.73 Personal history of transient ischemic attack (TIA), and cerebral infarction without residual deficits; I10 Essential (primary) hypertension; Z79.01 Long term (current) use of anticoagulants; Z79.899 Other long term (current) drug therapy; Z85.51 Personal history of malignant neoplasm of bladder; Z85.3 Personal history of malignant neoplasm of breast; Z85.850 Personal history of malignant neoplasm of thyroid
CPT/HCPCS: 70450; 71010; 80053; 81001; 82550; 82552; 83036; 83605; 83735; 84100; 84439; 84443; 84484; 85007; 85025; 85027; 85610; 85730; 87040; 87077; 87086; 87186; 93005; 96361; 96365; 96376; 97162; 97166; 99285; G0378; G8987; G8988; J0696; J7030

== ENCOUNTER → 2017-04-29 | Outpatient (CLI) | payer MEDICARE, BC ==
[~2017-04-29] MED LIST changes: -AUGM500T7 PO; +CEFD125S PO; -LOSA50TA2 PO; -NORC5TAB PO; +OMEP40CA2 PO; -WARF-23 PO; +XARE20TA PO
--- NOTE | 2017-04-29 16:25 | RADRPT ---
EXAM DATE/TIME: 04/29/2017 00:00 [facility] COMPARISON: No previous studies available for comparison. OUTSIDE STUDY REVIEWED: INDICATIONS : US guided bx of superior mediastinal nodule RECOMMENDATION: TECHNIQUE: Using automated exposure control and adjustment of the mA and/or kV according to patient size, radiat ion dose was kept as low as reasonably achievable to obtain optimal diagnostic quality images. DICO M format image data is available electronically for review and comparison. RECOMMENDATION: Mrs. Ortiz is 77 year-old with history of multiple cancers. Review of the outside PET scan fr [facility], in [place] revealed focal intense area of uptake corresponding to an 8 mm nodule in the left paratracheal region sitting behind great vessels and sternoclavicular joint without clear percutaneous access. Options at this point would be surgical exploration. or perhaps endobronchial ultrasound. The size of this would make both difficult. The intense uptake is suspicious for neoplastic process. Kemal Cavazos MD FACR on April 29, 2017 at 16:19 Board Certified Radiologist. This report was verified electronically.
== END ==
LOC: HRAD 15:36
PROVIDERS: ATTEND Internal Medicine
DX: J98.59 Other diseases of mediastinum, not elsewhere classified (principal)
CPT/HCPCS: 76140

== ENCOUNTER → 2017-04-29 | Outpatient (CLI) | payer MEDICARE, BC | LOC: HREF 15:54 | PROVIDERS: ATTEND Internal Medicine | DX: C73 Malignant neoplasm of thyroid gland (principal) ==

== ENCOUNTER → 2017-05-31 | Outpatient (CLI) | payer MEDICARE, BC | LOC: PHRSP 09:13 | PROVIDERS: ATTEND Thoracic Surgery (Cardiothoracic Vascular Surgery) | DX: J43.9 Emphysema, unspecified (principal); J98.59 Other diseases of mediastinum, not elsewhere classified | CPT/HCPCS: 94010; 94729 ==